=== PATIENT | female | born 1995 | race Caucasian/White ===

== ENCOUNTER 2020-03-22 00:41 | Inpatient (IN) | payer MEDICAID, OTHER ==
[~2020-03-22] VITALS: Ht 152.4 cm; Wt 66.7 kg
[~2020-03-22 00:41] MED LIST: ALBUTEROL; FERR-43 PO; PREN-88 PO; QVAR
[2020-03-22] MEDS ORDERED: ACETAMINOPHEN 325MG TABLET PO STA (00:47)
[2020-03-22] MEDS ORDERED: SODIUM CHLORIDE 0.9% 1,000 ML IV ONE (01:00)
[2020-03-22] MEDS ORDERED: METRONIDAZOLE 500 MG PREMIX 100 ML IV ONE (01:00)
[2020-03-22] MEDS ORDERED: DOXYCYCLINE HYCLATE 100 MG/VIAL IV ONE (01:00)
[2020-03-22] MEDS ORDERED: MORPHINE SULFATE 2 MG/ML CPJ (NOT FOR IM USE) IV PRN (01:30)
[2020-03-22] MEDS ORDERED: ONDANSETRON HCL 4MG/2ML INJ IV PRN (01:30)
[2020-03-22 01:32] LABS: HEMATOCRIT. 27.5 % (36.0-48.0); HEMOGLOBIN. 8.8 g/dL (12.0-16.0); MEAN CORPUSCULAR VOLUME 74.7 fL (81.0-99.0); MEAN PLATELET VOLUME 8.8 fl (7.4-10.4); PLATELET 453 x1000/uL (130-400); RED BLOOD CELL COUNT 3.68 mill/uL (4.2-5.4); RED CELL DISTRIBUTION WIDTH 21.3 % (11.6-14.6)
[2020-03-22 01:37] LABS: INR 1.2; PROTHROMBIN TIME 12.4 sec (9.6-11.0)
[2020-03-22 01:43] LABS: CHLORIDE 108 mEq/L (98-107)
[2020-03-22] MEDS ORDERED: DOXYCYCLINE 100MG in DEXTROSE 5% WATER 100ML IV ONE (04:00)
[2020-03-22] MEDS ORDERED: PIPERACILLIN/TAZOBACTAM 3.375GM/50ML PREMIX IV ONE (04:15)
[2020-03-22 05:00] VITALS: BP 105/65
[2020-03-22 05:35] LABS: PLATELET ESTIMATE INCREASED
[2020-03-22 06:00] VITALS: BP 105/65
[2020-03-22] MEDS ORDERED: PIPERACILLIN/TAZOBACTAM 3.375 G in DEXTROSE 5% WATER 50 ML IV SCH (06:00)
[2020-03-22 08:00] VITALS: BP 110/75
[2020-03-22] MEDS: HEPARIN 5000 UNITS/ML VIAL SUBCUT SCH ×2 (08:47→20:57)
[2020-03-22] MEDS: SODIUM CHLORIDE 0.9% 1,000 ML IV SCH ×2 (08:49→14:00)
[2020-03-22] MEDS: PIPERACILLIN/TAZOBACTAM 3.375 G in DEXT 5% WATER 100 ML IV SCH ×3 (11:23→23:25)
[2020-03-22 12:00] VITALS: BP 102/68
[2020-03-22 16:09] VITALS: BP 119/76
[2020-03-22 16:41] LABS: HEMATOCRIT. 26.9 % (36.0-48.0); HEMOGLOBIN. 8.5 g/dL (12.0-16.0); MEAN CORPUSCULAR HEMOGLOBIN 23.9 pg (28.0-32.0); MEAN CORPUSCULAR VOLUME 75.6 fL (81.0-99.0); MEAN PLATELET VOLUME 9.1 fl (7.4-10.4); PLATELET 452 x1000/uL (130-400); RED BLOOD CELL COUNT 3.56 mill/uL (4.2-5.4); RED CELL DISTRIBUTION WIDTH 21.4 % (11.6-14.6)
[2020-03-22] MEDS: ACETAMINOPHEN 325MG TABLET PO PRN ×2 (16:52→23:25)
[2020-03-22 17:00] LABS: CHLORIDE 108 mEq/L (98-107)
[2020-03-22 20:00] VITALS: BP 120/76
[2020-03-22 23:12] LABS: PLATELET ESTIMATE INCREASED
[2020-03-23] VITALS: BP 123/83
[2020-03-23] MEDS: SODIUM CHLORIDE 0.9% 1,000 ML IV SCH ×2 (02:42→17:29)
[2020-03-23 04:00] VITALS: BP 142/95
[2020-03-23] MEDS: PIPERACILLIN/TAZOBACTAM 3.375 G in DEXT 5% WATER 100 ML IV SCH ×3 (05:03→17:29)
[2020-03-23 06:27] LABS: HEMATOCRIT. 24.8 % (36.0-48.0); HEMOGLOBIN. 7.9 g/dL (12.0-16.0); MEAN PLATELET VOLUME 8.9 fl (7.4-10.4); PLATELET 481 x1000/uL (130-400); RED BLOOD CELL COUNT 3.31 mill/uL (4.2-5.4); RED CELL DISTRIBUTION WIDTH 21.6 % (11.6-14.6)
[2020-03-23 06:45] LABS: CHLORIDE 108 mEq/L (98-107)
[2020-03-23 08:00] VITALS: BP 128/80
[2020-03-23] MEDS: HEPARIN 5000 UNITS/ML VIAL SUBCUT SCH ×2 (08:19→21:46)
[2020-03-23] MEDS: ACETAMINOPHEN 325MG TABLET PO PRN (08:20)
[2020-03-23 12:00] VITALS: BP 105/54
[2020-03-23 12:13] LABS: PLATELET ESTIMATE INCREASED
[2020-03-23 16:00] VITALS: BP 129/79
[2020-03-23 20:00] VITALS: BP 130/75
[2020-03-24 00:23] VITALS: BP 128/65
[2020-03-24] MEDS: PIPERACILLIN/TAZOBACTAM 3.375 G in DEXT 5% WATER 100 ML IV SCH ×5 (03:32→23:15)
[2020-03-24 04:00] VITALS: BP 122/82
[2020-03-24 07:04] LABS: HEMATOCRIT. 25.5 % (36.0-48.0); HEMOGLOBIN. 8.2 g/dL (12.0-16.0); MEAN CORPUSCULAR HEMOGLOBIN 24.4 pg (28.0-32.0); MEAN CORPUSCULAR VOLUME 75.5 fL (81.0-99.0); MEAN PLATELET VOLUME 8.9 fl (7.4-10.4); PLATELET 586 x1000/uL (130-400); RED BLOOD CELL COUNT 3.38 mill/uL (4.2-5.4); RED CELL DISTRIBUTION WIDTH 22.2 % (11.6-14.6)
[2020-03-24 07:31] LABS: CHLORIDE 108 mEq/L (98-107)
[2020-03-24 08:00] VITALS: BP 92/56
[2020-03-24] MEDS: HEPARIN 5000 UNITS/ML VIAL SUBCUT SCH ×2 (09:05→20:34)
[2020-03-24] MEDS: SODIUM CHLORIDE 0.9% 1,000 ML IV SCH ×2 (09:05→17:09)
[2020-03-24 12:00] VITALS: BP 106/79
[2020-03-24 14:28] LABS: ATYPICAL LYMPHOCYTES 1
[2020-03-24 14:29] LABS: PLATELET ESTIMATE INCREASED
[2020-03-24 16:00] VITALS: BP 129/76
[2020-03-24 18:22] LABS: TOTAL IRON BINDING CAPACITY 282 ug/dL (250-450)
[2020-03-24 20:00] VITALS: BP 123/76
[2020-03-25] VITALS: BP 132/85
[2020-03-25 04:00] VITALS: BP 120/77
[2020-03-25] MEDS: PIPERACILLIN/TAZOBACTAM 3.375 G in DEXT 5% WATER 100 ML IV SCH (05:43)
[2020-03-25] MEDS: SODIUM CHLORIDE 0.9% 1,000 ML IV SCH (05:44)
[2020-03-25 06:33] LABS: HEMATOCRIT. 26.4 % (36.0-48.0); HEMOGLOBIN. 8.4 g/dL (12.0-16.0); MEAN CORPUSCULAR HEMOGLOBIN 24.4 pg (28.0-32.0); MEAN CORPUSCULAR VOLUME 76.5 fL (81.0-99.0); MEAN PLATELET VOLUME 8.9 fl (7.4-10.4); PLATELET 687 x1000/uL (130-400); RED BLOOD CELL COUNT 3.45 mill/uL (4.2-5.4); RED CELL DISTRIBUTION WIDTH 24.1 % (11.6-14.6)
[2020-03-25 07:21] LABS: CHLORIDE 106 mEq/L (98-107)
[2020-03-25 08:00] VITALS: BP 115/72
[2020-03-25] MEDS: HEPARIN 5000 UNITS/ML VIAL SUBCUT SCH (08:28)
[2020-03-25 11:19] LABS: PLATELET ESTIMATE INCREASED
[2020-03-25] MEDS ORDERED: CEFTRIAXONE 2 G PREMIX 50 ML IV SCH (12:00)
[2020-03-25] MEDS ORDERED: AMOX-424 MT (12:02)
[2020-03-25] MEDS ORDERED: CEFTRIAXONE 2 G in DEXTROSE 5% WATER 50 ML IV SCH (13:00)
== END 2020-03-25 12:23 | disposition left against medical advice (07) | DRG 561 ==
LOC: ER 00:41 → 5WST 01:20 → EDBEDREQ 01:32 → EDBEDREQSVC 01:32 → EDBEDREQTM 01:32 → ENRESERV 05:02
PROVIDERS: ADMIT Internal Medicine; ATTEND Internal Medicine
DX: O86.01 Infection of obstetric surgical wound, superficial incisional site (principal); A41.9 Sepsis, unspecified organism; O86.04 Sepsis following an obstetrical procedure; D64.9 Anemia, unspecified; E44.0 Moderate protein-calorie malnutrition; K65.1 Peritoneal abscess; M60.009 Infective myositis, unspecified site; R18.8 Other ascites; L03.311 Cellulitis of abdominal wall; D47.3 Essential (hemorrhagic) thrombocythemia; B96.1 Klebsiella pneumoniae [K. pneumoniae] as the cause of diseases classified elsewhere; O99.03 Anemia complicating the puerperium; O90.89 Other complications of the puerperium, not elsewhere classified; Z98.891 History of uterine scar from previous surgery
CPT/HCPCS: 36415; 71045; 74177; 80048; 80053; 82728; 83540; 83550; 83605; 83735; 84145; 84484; 85025; 86850; 86900; 87070; 87077; 87186; 93005; 99291; J0696; J1644; J2270; J2405; J2543; J3490; J7030; J7060; J7070

== ENCOUNTER 2021-02-01 07:54 | Emergency (ER) | payer MEDICAID ==
[~2021-02-01] VITALS: Ht 165.1 cm; Wt 50.0 kg
[~2021-02-01 07:54] MED LIST changes: -ALBUTEROL; +AMOX-424 MT; -FERR-43 PO; -PREN-88 PO; -QVAR
[2021-02-01 07:55] VITALS: BP 106/72
== END 2021-02-01 08:55 | disposition left against medical advice (07) ==
LOC: ER 08:06
DX: Z53.21 Procedure and treatment not carried out due to patient leaving prior to being seen by health care provider (principal)

== ENCOUNTER 2021-02-11 09:26 | Emergency (ER) | payer MEDICAID | END 2021-02-11 10:14 | disposition left against medical advice (07) | LOC: ER 09:26 | DX: Z53.21 Procedure and treatment not carried out due to patient leaving prior to being seen by health care provider (principal) ==

== ENCOUNTER 2022-03-26 07:13 | Emergency (ER) | payer MEDICAID, OTHER ==
[~2022-03-26] VITALS: Ht 160 cm; Wt 61.6 kg
[2022-03-26 07:21] VITALS: BP 120/78
== END 2022-03-26 09:57 | disposition left against medical advice (07) ==
LOC: ER 07:13
DX: Z53.21 Procedure and treatment not carried out due to patient leaving prior to being seen by health care provider (principal)

== ENCOUNTER 2023-09-04 03:23 | Emergency (ER) | payer OTHER ==
[~2023-09-04] VITALS: Ht 153.7 cm; Wt 79.7 kg
[2023-09-04 03:38] VITALS: BP 116/46; PULSE 72; RESP 22; TEMP 98.2; O2SAT 98
== END 2023-09-04 05:31 | disposition left against medical advice (07) ==
LOC: ER 03:32
DX: M79.641 Pain in right hand (principal); Z53.21 Procedure and treatment not carried out due to patient leaving prior to being seen by health care provider
CPT/HCPCS: 99281

== ENCOUNTER 2024-01-28 11:35 | Emergency (ER) | payer MEDICAID, OTHER ==
[~2024-01-28] VITALS: Ht 154.9 cm; Wt 82.0 kg
[2024-01-28 11:49] VITALS: BP 103/69; TEMP 98; O2SAT 99
[2024-01-28 11:50] VITALS: PULSE 98; RESP 16; O2SAT 98
[2024-01-28] MEDS ORDERED: DOCU-138 MT (12:57)
== END 2024-01-28 13:54 | disposition home or self-care (01) ==
LOC: ER 13:25
DX: R19.8 Other specified symptoms and signs involving the digestive system and abdomen (principal)
CPT/HCPCS: 99282

== ENCOUNTER 2024-04-20 18:50 | Inpatient (IN) | payer OTHER ==
[~2024-04-20] VITALS: Ht 160 cm; Wt 79.4 kg
[~2024-04-20 18:50] MED LIST changes: +DOCU-138 MT
[2024-04-20] MEDS: CEFTRIAXONE 1GM/50ML 50 ML IV ONE ×2 (19:45→23:08)
[2024-04-20] MEDS: ACETAMINOPHEN 325MG TABLET PO STA (19:45)
[2024-04-20] MEDS: SODIUM CHLORIDE 0.9% 1,000 ML IV ONE ×3 (19:45→22:23)
[2024-04-20 19:50] LABS: CLARITY URINE CLEAR (CLEAR); COLOR URINE YELLOW (YELLOW); GLUCOSE URINE NEGATIVE (NEGATIVE); KETONES URINE TRACE (NEGATIVE); LEUKOCYTE ESTERASE URINE NEGATIVE (NEGATIVE); NITRITE URINE NEGATIVE (NEGATIVE); OCCULT BLOOD URINE NEGATIVE (NEGATIVE); PH URINE 7.5 (4.5-8.0); PROTEIN URINE NEGATIVE (NEGATIVE)
[2024-04-20 20:01] LABS: HEMOGLOBIN. 12.5 g/dL (12.0-16.0); MEAN CORPUSCULAR HEMOGLOBIN 28.3 pg (28.0-32.0); MEAN CORPUSCULAR HGB CONC 32.8 g/dL (31.0-37.0); MEAN CORPUSCULAR VOLUME 86.2 fL (81.0-99.0); MEAN PLATELET VOLUME 10.2 fl (7.4-10.4); PLATELET 252 x1000/uL (130-400); RED BLOOD CELL COUNT 4.41 mill/uL (4.2-5.4); RED CELL DISTRIBUTION WIDTH 14.5 % (11.6-14.6); WHITE BLOOD COUNT 12.3 x1000/uL (4.5-11.0)
[2024-04-20 20:04] LABS: CHLORIDE 103 mEq/L (98-107); POTASSIUM 3.8 mEq/L (3.5-5.1); SODIUM 134 mEq/L (136-145)
[2024-04-20 20:05] VITALS: PULSE 123; RESP 22; O2SAT 99
[2024-04-20 20:05] LABS: CALCIUM 9.5 mg/dL (8.7-10.4); CARBON DIOXIDE 25 mEq/L (21-32)
[2024-04-20] MEDS: IPRATROPIUM/ALBUTEROL 0.5-3(2.5)MG/3ML NEB HHN ONE (20:05)
[2024-04-20 20:06] LABS: DIFFERENTIAL COMMENT 1
[2024-04-20 20:10] LABS: CREATININE 0.8 mg/dL (0.6-1.0); GLUCOSE 114 mg/dL (70-105); UREA NITROGEN BLOOD 9 mg/dL (9-23)
[2024-04-20 20:12] LABS: ALANINE AMINOTRANSFERASE 18 IU/L (10-49); ALBUMIN 4.4 g/dL (3.2-4.8); ASPARTATE AMINOTRANSFERASE 21 IU/L (<34); BILIRUBIN DIRECT 0.1 mg/dL (<=3.0); BILIRUBIN TOTAL 0.3 mg/dL (0.1-1.0); PROTEIN TOTAL 8.1 g/dL (6.0-8.3)
[2024-04-20 20:13] LABS: INR 1.2; PROTHROMBIN TIME 12.7 sec (9.6-11.0)
[2024-04-20 20:19] LABS: TROPONIN I HIGH SENSITIVITY < 4 ng/L (3.0-34)
[2024-04-20] MEDS: AZITHROMYCIN 500MG/250ML 250 ML IV ONE (20:41)
[2024-04-20] MEDS: SODIUM CHLORIDE 0.9% 500 ML IV ONE (20:45)
[2024-04-20 21:03] LABS: PLATELET ESTIMATE NORMAL
[2024-04-20] MEDS: METHYLPREDNISOLONE SOD SUCC 125MG/2ML (ACT-O-VIAL) IV ONE (21:18)
[2024-04-20] MEDS: KETOROLAC 30MG/ML VIAL IV ONE (21:31)
[2024-04-20] MEDS ORDERED: DEXAMETHASONE 10 MG in SODIUM CHLORIDE 0.9% 50 ML IV ONE (22:30)
[2024-04-20] MEDS ORDERED: ACYCLOVIR IV ONE (22:45)
[2024-04-20] MEDS ORDERED: DEXT 5% IV ONE (22:45)
[2024-04-20] MEDS ORDERED: WATER IV ONE (22:45)
[2024-04-20 22:56] LABS: HCG SCREEN NEGATIVE
[2024-04-20] MEDS ORDERED: NOREPINEPHRINE 8 MG in DEXT 5% WATER 242 ML IV STA (23:07)
[2024-04-20] MEDS ORDERED: NOREPINEPHRINE 8MG/250ML PMX 250 ML IV PRN (23:45)
[2024-04-20] MEDS: VANCOMYCIN 1.5GM/250ML IV NR (23:48)
[2024-04-21] VITALS (7 sets, daily range): BP systolic 102–125; BP diastolic 52–64; PULSE 72–101; RESP 18; TEMP 36.114–36.55848; O2SAT 95–97
[2024-04-21] MEDS ORDERED: MAGNESIUM/ALUMINUM HYDROXIDE/SIMETHICONE 30ML UDC PO PRN
[2024-04-21] MEDS ORDERED: ACETAMINOPHEN 325MG TABLET PO PRN
[2024-04-21] MEDS ORDERED: IPRATROPIUM/ALBUTEROL 0.5-3(2.5)MG/3ML NEB HHN PRN
[2024-04-21] MEDS ORDERED: DEXTROSE 50% WATER 50ML SYRINGE IV PRN
[2024-04-21] MEDS ORDERED: CLONIDINE 0.1MG TABLET PO PRN
[2024-04-21] MEDS: LACTATED RINGERS 1,000 ML IV SCH (00:08)
[2024-04-21] MEDS: ACYCLOVIR INJ 500 MG in DEXT 5% WATER 100 ML IV NR (00:50)
[2024-04-21] MEDS: IPRATROPIUM/ALBUTEROL 0.5-3(2.5)MG/3ML NEB HHN SCH (02:57)
[2024-04-21 03:38] LABS: GLUCOSE CSF 86 mg/dL (41-75)
[2024-04-21 04:38] LABS: CSF APPEARANCE CLEAR (CLEAR); CSF WHITE BLOOD CELL 0 /cu mm (0-10)
[2024-04-21 06:02] LABS: HEMATOCRIT. 35.8 % (36.0-48.0); HEMOGLOBIN. 11.4 g/dL (12.0-16.0); MEAN CORPUSCULAR HEMOGLOBIN 27.9 pg (28.0-32.0); MEAN CORPUSCULAR HGB CONC 31.8 g/dL (31.0-37.0); MEAN CORPUSCULAR VOLUME 87.5 fL (81.0-99.0); MEAN PLATELET VOLUME 10.4 fl (7.4-10.4); PLATELET 203 x1000/uL (130-400); RED BLOOD CELL COUNT 4.09 mill/uL (4.2-5.4); RED CELL DISTRIBUTION WIDTH 14.7 % (11.6-14.6); WHITE BLOOD COUNT 6.2 x1000/uL (4.5-11.0)
[2024-04-21 06:15] LABS: CHLORIDE 111 mEq/L (98-107); POTASSIUM 3.8 mEq/L (3.5-5.1); SODIUM 141 mEq/L (136-145)
[2024-04-21 06:16] LABS: CALCIUM 8.2 mg/dL (8.7-10.4); CARBON DIOXIDE 24 mEq/L (21-32)
[2024-04-21 06:21] LABS: CREATININE 0.7 mg/dL (0.6-1.0); GLUCOSE 136 mg/dL (70-105); TRIGLYCERIDE 20 mg/dL (0-150); UREA NITROGEN BLOOD 9 mg/dL (9-23)
[2024-04-21 06:22] LABS: LDL CHOLESTEROL 73 mg/dL (5-100)
[2024-04-21 06:23] LABS: CHOLESTEROL 111 mg/dL (<200); CREATINE KINASE 58 IU/L (34-145); DIFFERENTIAL COMMENT 1; HDL CHOLESTEROL 34 mg/dL (>65)
[2024-04-21 06:26] LABS: T4 FREE 0.99 ng/dL (0.89-1.76); THYROID STIMULATING HORMONE 0.22 uIU/mL (0.55-4.78)
[2024-04-21] MEDS: BLOOD SUGAR DIAGNOSTIC STRIP TEST SCH (07:01)
[2024-04-21] MEDS ORDERED: IOHEXOL-300 100 ML BOTTLE ONE (07:06)
[2024-04-21 08:17] LABS: PLATELET ESTIMATE NORMAL
[2024-04-21] MEDS ORDERED: FAMOTIDINE 20MG/2ML VIAL IV SCH (09:00)
[2024-04-21] MEDS ORDERED: CEFTRIAXONE 1GM/50ML 50 ML IV SCH (09:00)
[2024-04-21] MEDS ORDERED: AZITHROMYCIN 500MG/250ML 250 ML IV SCH (09:00)
[2024-04-21] MEDS ORDERED: BUDESONIDE 0.5MG/2ML NEB HHN SCH (09:00)
[2024-04-21] MEDS ORDERED: IPRATROPIUM/ALBUTEROL 0.5-3(2.5)MG/3ML NEB HHN SCH (10:15)
[2024-04-21] MEDS: FLUTICASONE PROPIONATE 50MCG/SPRAY BOTTLE BOTHNSTRLS SCH (11:00)
[2024-04-21] MEDS: ENOXAPARIN 30MG/0.3ML SYR SUBCUT SCH (11:14)
[2024-04-21] MEDS: CEFTRIAXONE 1GM/50ML 50 ML IV SCH (11:15)
[2024-04-21] MEDS: ACETAMINOPHEN 325MG TABLET PO PRN (11:15)
[2024-04-21] MEDS: GUAIFENESIN 200MG/10ML SUGAR FREE UDC PO PRN (11:15)
[2024-04-21] MEDS: ONDANSETRON HCL 4MG/2ML INJ IV PRN (11:15)
[2024-04-21] MEDS: LORATADINE 10MG TABLET PO SCH (11:16)
[2024-04-21] MEDS: AZITHROMYCIN 500MG/250ML 250 ML IV SCH (11:17)
[2024-04-21] MEDS: METHYLPREDNISOLONE SOD SUCC 40MG/ML (ACT-O-VIAL) IV SCH (11:29)
[2024-04-21] MEDS: GUAIFENESIN-DM 200MG-20MG/10ML UDC PO SCH (12:00)
[2024-04-21 12:59] LABS: *AMPHETAMINES SCREEN URINE NEGATIVE (NEGATIVE); *BARBITURATES SCREEN URINE NEGATIVE (NEGATIVE); *BENZODIAZEPINES SCREEN URINE NEGATIVE (NEGATIVE); *COCAINE SCREEN URINE NEGATIVE (NEGATIVE)
[2024-04-21 13:00] LABS: CANNABINOID URINE SCREEN NEGATIVE (NEGATIVE); ECSTASY MDMA SCREEN URINE NEGATIVE (NEGATIVE); METHADONE URINE SCREEN NEGATIVE (NEGATIVE); OPIATES URINE SCREEN NEGATIVE (NEGATIVE); PHENCYCLIDINE URINE SCREEN NEGATIVE (NEGATIVE)
[2024-04-21] MEDS: MONTELUKAST SODIUM 10MG TABLET PO SCH (17:01)
[2024-04-21] MEDS: BENZONATATE 100MG CAPSULE PO PRN (17:03)
[2024-04-21 17:08] LABS: CREATINE KINASE 74 IU/L (34-145)
[2024-04-21] MEDS ORDERED: DOCUSATE SODIUM 100MG CAPSULE PO PRN (17:15)
[2024-04-21] MEDS: DOCUSATE SODIUM 100MG CAPSULE PO PRN (17:58)
[2024-04-21] MEDS: FAMOTIDINE 20MG TABLET PO SCH (21:09)
[2024-04-22] VITALS: BP 97/53; PULSE 70; RESP 18; TEMP 37.66968; O2SAT 97
[2024-04-22 04:00] VITALS: BP 104/54; PULSE 93; RESP 18; TEMP 36.89184; O2SAT 97
[2024-04-22 08:00] VITALS: BP 104/70; PULSE 83; RESP 18; TEMP 36.50292; O2SAT 96
[2024-04-22] MEDS: PREDNISONE 20MG TABLET PO SCH (09:48)
[2024-04-22 12:00] VITALS: BP 96/64; PULSE 77; RESP 18; TEMP 36.83628; O2SAT 95
[2024-04-22] MEDS ORDERED: AZIT500T8 MT (12:38)
[2024-04-22] MEDS ORDERED: GUAI10LI14 PO (12:38)
[2024-04-22] MEDS ORDERED: MONT-46 PO (12:38)
[2024-04-22] MEDS ORDERED: BENZ100C86 PO (12:38)
[2024-04-22] MEDS ORDERED: P20 PO (12:38)
[2024-04-22] MEDS ORDERED: CLAR10 PO (12:38)
[2024-04-22] MEDS ORDERED: FAMO20TA8 PO (12:38)
[2024-04-22] MEDS ORDERED: BUDE6HFA INH (12:43)
[2024-04-22] MEDS ORDERED: ACET-2708 PO (12:43)
[2024-04-22 14:17] VITALS: BP 96/64; PULSE 77; TEMP 98.3; O2SAT 95
[2024-04-23] MEDS ORDERED: CETI10CA11 PO (18:49)
[2024-04-23] MEDS ORDERED: METH4TAB95 MT (18:49)
[2024-04-23] MEDS ORDERED: GUAI-1189 PO (18:49)
[2024-04-23] MEDS ORDERED: AZIT500T8 PO (18:49)
[2024-04-23] MEDS ORDERED: BUDE6HFA INH (18:49)
[2024-04-24 14:12] LABS: VDRL CSF Non Reactive (Non Rea:<1:1)
== END 2024-04-22 16:15 | disposition home or self-care (01) | DRG 720 ==
LOC: ER 18:57 → 5WST 22:30 → 7EST 04-21 08:49
PROVIDERS: ADMIT Internal Medicine; ATTEND Internal Medicine
DX: A41.9 Sepsis, unspecified organism (principal); D72.10 Eosinophilia, unspecified; J45.901 Unspecified asthma with (acute) exacerbation; K76.0 Fatty (change of) liver, not elsewhere classified; E83.51 Hypocalcemia; K21.9 Gastro-esophageal reflux disease without esophagitis; Z20.822 Contact with and (suspected) exposure to COVID-19; R94.31 Abnormal electrocardiogram [ECG] [EKG]; K80.20 Calculus of gallbladder without cholecystitis without obstruction; R65.20 Severe sepsis without septic shock; B34.9 Viral infection, unspecified; E66.812 Obesity, class 2; J32.9 Chronic sinusitis, unspecified; J98.11 Atelectasis; Z79.51 Long term (current) use of inhaled steroids; Z87.09 Personal history of other diseases of the respiratory system; Z68.31 Body mass index [BMI] 31.0-31.9, adult
CPT/HCPCS: 36415; 71045; 71260; 80048; 80061; 80076; 80305; 81003; 82550; 82945; 82962; 83036; 83605; 83880; 84145; 84157; 84439; 84443; 84484; 84703; 85025; 85379; 86592; 87070; 87116; 87210; 87420; 87426; 87430; 87804; 87899; 93005; 94640; 99285; J0133; J0456; J0696; J1650; J1885; J2405; J2919; J2920; J3370; J3490; J7030; J7040; J7060; J7512; Q9967

== ENCOUNTER 2024-10-29 07:54 | Emergency (ER) | payer OTHER ==
[~2024-10-29] VITALS: Ht 154.9 cm; Wt 72.7 kg
[~2024-10-29 07:54] MED LIST changes: -AMOX-424 MT; +AZIT500T8 PO; +BUDE6HFA INH; +CETI10CA11 PO; +GUAI-1189 PO; +METH4TAB95 MT; +MONT-46 PO
[2024-10-29 08:05] VITALS: O2SAT 97
[2024-10-29] MEDS ORDERED: DOXY100C5 MT (08:38)
[2024-10-29] MEDS ORDERED: IBUP-2029 MT (08:38)
[2024-10-29] MEDS ORDERED: TC1U15 TP (08:38)
[2024-10-29] MEDS: IBUPROFEN 600MG TABLET PO ONE (09:08)
[2024-10-29 09:26] VITALS: BP 109/62; PULSE 71; RESP 16; TEMP 37; O2SAT 96
== END 2024-10-29 09:26 | disposition home or self-care (01) ==
LOC: ER 08:04
DX: S41.052A Open bite of left shoulder, initial encounter (principal); J45.909 Unspecified asthma, uncomplicated; Z98.890 Other specified postprocedural states; Z79.899 Other long term (current) drug therapy; Z79.51 Long term (current) use of inhaled steroids; W57.XXXA Bitten or stung by nonvenomous insect and other nonvenomous arthropods, initial encounter; Y93.89 Activity, other specified; Y92.89 Other specified places as the place of occurrence of the external cause; Y99.8 Other external cause status
CPT/HCPCS: 81025; 99283

== ENCOUNTER 2024-10-30 21:38 | Emergency (ER) | payer OTHER ==
[~2024-10-30] VITALS: Ht 154.9 cm; Wt 74.7 kg
[~2024-10-30 21:38] MED LIST changes: +DOXY100C5 MT; +IBUP-2029 MT; +TC1U15 TP
[2024-10-30 21:46] VITALS: TEMP 37.3; O2SAT 100
[2024-10-30 22:47] LABS: BASOPHILS % 0.5 % (0.0-2.0); EOSINOPHILS % 6.4 % (0.0-5.0); HEMATOCRIT. 39.1 % (36.0-48.0); HEMOGLOBIN. 12.9 g/dL (12.0-16.0); MEAN CORPUSCULAR HEMOGLOBIN 28.6 pg (28.0-32.0); MEAN CORPUSCULAR HGB CONC 32.9 g/dL (31.0-37.0); MEAN CORPUSCULAR VOLUME 86.8 fL (81.0-99.0); MEAN PLATELET VOLUME 10.9 fl (7.4-10.4); MONOCYTES % 8.3 % (2.0-8.0); NEUTROPHILS % 66.8 % (40.0-76.0); PLATELET 220 x1000/uL (130-400); RED BLOOD CELL COUNT 4.51 mill/uL (4.2-5.4); RED CELL DISTRIBUTION WIDTH 14.3 % (11.6-14.6); WHITE BLOOD COUNT 11.7 x1000/uL (4.5-11.0)
[2024-10-30 22:58] LABS: CHLORIDE 106 mEq/L (98-107); POTASSIUM 3.8 mEq/L (3.5-5.1); SODIUM 139 mEq/L (136-145)
[2024-10-30 22:59] LABS: CALCIUM 9.8 mg/dL (8.7-10.4); CARBON DIOXIDE 23 mEq/L (21-32)
[2024-10-30 23:04] LABS: CREATININE 0.7 mg/dL (0.6-1.0); GLUCOSE 113 mg/dL (70-105); UREA NITROGEN BLOOD 18 mg/dL (9-23)
[2024-10-30 23:05] LABS: HCG SCREEN NEGATIVE
[2024-10-30 23:06] LABS: ALANINE AMINOTRANSFERASE 15 IU/L (10-49); ALBUMIN 4.5 g/dL (3.2-4.8); ASPARTATE AMINOTRANSFERASE 22 IU/L (<34); BILIRUBIN DIRECT < 0.1 mg/dL (<=3.0)
[2024-10-30 23:07] LABS: BILIRUBIN TOTAL 0.2 mg/dL (0.1-1.0); PROTEIN TOTAL 7.5 g/dL (6.0-8.3)
[2024-10-30 23:47] LABS: CLARITY URINE CLEAR (CLEAR); COLOR URINE YELLOW (YELLOW); GLUCOSE URINE NEGATIVE (NEGATIVE); KETONES URINE NEGATIVE (NEGATIVE); LEUKOCYTE ESTERASE URINE TRACE (NEGATIVE); NITRITE URINE NEGATIVE (NEGATIVE); OCCULT BLOOD URINE 3+ (NEGATIVE); PROTEIN URINE NEGATIVE (NEGATIVE); SPECIFIC GRAVITY URINE 1.011 (1.005-1.030); UROBILINOGEN URINE 0.2 E.U./dL (0.2-1.0)
[2024-10-31] MEDS ORDERED: IBUP-2029 MT (01:52)
[2024-10-31] MEDS ORDERED: BO1 TP (01:56)
[2024-10-31 02:01] VITALS: BP 116/69; PULSE 72; RESP 12; O2SAT 100
[2024-10-31] MEDS ORDERED: NITR100C MT (02:16)
[2024-10-31 03:20] LABS: SQUAMOUS EPITHELIAL CELL URINE FEW /lpf (RARE/1+)
[2024-10-31 03:21] LABS: RBC URINE TNTC /hpf (0-2); WBC URINE 0-2 /hpf (0-2)
[2024-10-31 03:22] LABS: BACTERIA URINE NONE SEEN
[2025-01-11] MEDS ORDERED: MIDO5TAB4 MT (14:56)
== END 2024-10-31 02:02 | disposition home or self-care (01) ==
LOC: ER 21:38
DX: N83.201 Unspecified ovarian cyst, right side (principal); N39.0 Urinary tract infection, site not specified; R10.2 Pelvic and perineal pain; R21 Rash and other nonspecific skin eruption; Z79.51 Long term (current) use of inhaled steroids
CPT/HCPCS: 36415; 76830; 76856; 80048; 80076; 81003; 84703; 85025; 86850; 86900; 99284

== ENCOUNTER 2025-03-27 23:40 | Emergency (ER) | payer OTHER ==
[~2025-03-27] VITALS: Ht 154.9 cm; Wt 70.0 kg
[~2025-03-27 23:40] MED LIST changes: -AZIT500T8 PO; +BO1 TP; -DOXY100C5 MT; -GUAI-1189 PO; +IBUP-1455 MT; -IBUP-2029 MT; -METH4TAB95 MT; +[UNRECOGNIZED DRUG - CODE] PO
[2025-03-27 23:45] VITALS: O2SAT 100
[2025-03-28] MEDS: TETANUS, DIPHTHERIA, PERTUSSIS VAC/PF 0.5ML (>10YR OLD) IM ONE (05:05)
[2025-03-28] MEDS ORDERED: BO1 TP (05:31)
[2025-03-28 05:45] VITALS: BP 111/65; PULSE 64; RESP 16; TEMP 36.8; O2SAT 99
== END 2025-03-28 05:48 | disposition home or self-care (01) ==
LOC: ER 23:40
DX: S61.412A Laceration without foreign body of left hand, initial encounter (principal); Z23 Encounter for immunization; Z79.51 Long term (current) use of inhaled steroids; W22.8XXA Striking against or struck by other objects, initial encounter; Y93.89 Activity, other specified; Y92.89 Other specified places as the place of occurrence of the external cause; Y99.8 Other external cause status
CPT/HCPCS: 99283; 90715; 90471; Z7610 ×2